=== PATIENT | female | born 1995 | race Caucasian/White ===

== ENCOUNTER 2020-02-05 13:03 | Outpatient (CLI) | payer BC, SELFPAY ==
--- NOTE | 2020-02-05 13:07 | NS.NUTBLAN_ITS ---
Francy and her mother attended Medical Nutrition Therapy for anorexia. Francy is 24 years old. Ht: 5'4 and reports that she gets blind weights at her appointments. Wt: 104 lbs BMI: 17.85. Francy was in inpatient eating disorder treatment last year for two weeks. Meds include: naltrexone, strattera, abilify, calcium with D, MVI. PMH: fatigue, osteoporosis, constipation, bipolar dx, PTSD, Fibromyalgia. She started to restrict about 9 years ago, her lowest weight at current height was 78 lb. Francy reports that she is a vegan as of 1 year ago and she and her brother cook every night. Mother makes her own dinner. Francy reports no menses for several years. She walks 1 hour per day. Diet record reveals 2 meals daily- including large amounts of fruit, vegetables, very low in fat and protein- average intake: 800-900 kcal, 30 grams protein, 20 grams fat. Estimated Nutrient Needs: 2087 kcal (BEE:1221, 1.3 activity factor +500 kcal for weight gain), 60-70 grams protein (1.3-1.4 gpro/kg), 2000 ml fluid. Esdras is commited to recover from her eating disorder. She has maintained her current weight of > 6 months however has not had her menses return. In view of low BMI (<19), suspect will need to gain 10-15 lbs to regulate her female hormones. She is willing to gain weight but prefers blind weights. Todays session included education on her exchange meal plan. She needs to have 6 exchanges of carbohydrates, protein and fats, 2 exchanges of dairy. Exchange list provided. Esdras is agreeable to eat 3 meals daily and include snacks inorder to meet necessary exchanges for weight gain. Current vitamin/mineral intake sufficient for repletion. Goal weight set at 114-120 lbs. Plan: Francy will follow meal plan as explained, if unable to, will journal about her feelings and bring to next session Francy will include more protein rich foods, healthy fats and limit her exercise to no more than 30 minutes daily. Follow up visit scheduled for 02/12/20. Face to Face Time: 45 minutes
== END 2020-02-05 13:23 ==
PROVIDERS: PCP Registered Nurse; Visit Provider Registered Nurse
DX: F50.9 Eating disorder, unspecified (principal); Z71.3 Dietary counseling and surveillance
CPT/HCPCS: 97802

== ENCOUNTER 2020-03-03 01:14 | Outpatient (CLI) | payer BC, SELFPAY | END 2020-03-03 01:34 | PROVIDERS: PCP Registered Nurse; Visit Provider Registered Nurse | DX: R63.0 Anorexia (principal); Z71.3 Dietary counseling and surveillance | CPT/HCPCS: 97803 ==

== ENCOUNTER 2020-03-25 13:13 | Outpatient (CLI) | payer BC, SELFPAY ==
--- NOTE | 2020-03-25 13:42 | NS.NUTBLAN_ITS ---
Francy returns for follow up visit for Medical Nutrition Therapy for Anorexia. Blind weight today is 104 lbs, up 2 lbs from previous visit. Francy brought her food journal and she continues to struggle with meeting her caloric need. She is able to meet her 2000 calorie, 60 g protein goal on <50% of days. Most days she eats 3 times daily and reports feeling excessively full that is a trigger for negative thoughts that lead to restricting at next meal. She is able to verbalize ways she can distract herself during meal time to meet calorie needs but some days does not have resilience to follow through. Overall, she has gained back 2 of her lost lbs and is closer to her goal weight of 106-110lbs. She also reports menses returning. She continues to be adamant about recovery and continues to take positive steps for recovery. Plan: 1. continue to follow 2000 kcal meal plan 2. start to log down protein intake at all meals- goal is 60 g protein 3. write down triggering feelings along with food journal. \ Follow visit: April 08, 2020 Face to Face 30 minutes
== END 2020-03-25 13:33 ==
PROVIDERS: PCP Registered Nurse; Visit Provider Registered Nurse
DX: R63.0 Anorexia (principal); Z71.3 Dietary counseling and surveillance
CPT/HCPCS: 97803

== ENCOUNTER 2020-04-08 03:44 | Outpatient (CLI) | payer BC, SELFPAY ==
--- NOTE | 2020-04-08 13:00 | NS.NUTBLAN_ITS ---
Francy returns for Medical Nutrition Therapy for anorexia. Blind weight today 106 lbs. Has maintained adequate weight for > 4 weeks, with monthly menses has returned. Diet recall indicates 3 meals daily with average intake of 1400 kcal, 60 g protein. In last two weeks, has increased protein intake to recommended amounts. Continues to take citrucel and magnesium and able to have Bm most days. Takes daily MVI. Session today focused on redirecting triggering thoughts, labeling thoughts as triggers and documenting frequency. Discussed importance of Name it to Tame it to help redirect impulses and to be able to avoid restricting. Overall, Francy is doing well and able to work through her eating disorder thoughts and continue to meet nutrient needs for weight maintenace at lowest ideal body weight for body function. Plan: Continue current meal plan Will track restricting/triggerin thoghts will follow up 04/22/20 at 1300 30 min spent face to face
== END 2020-04-08 04:04 ==
PROVIDERS: PCP Registered Nurse; Visit Provider Registered Nurse
DX: R63.0 Anorexia (principal); Z71.3 Dietary counseling and surveillance
CPT/HCPCS: 97803

== ENCOUNTER 2020-04-22 03:42 | Outpatient (CLI) | payer BC, SELFPAY ==
--- NOTE | 2020-04-22 13:00 | NS.NUTBLAN_ITS ---
Francy returns for follow up meeting for Medical Nutrition Therapy for anorexia. Blind weight 102 lbs. 85% IBW.. Francy is ranging from 102-106 lbs in last couple of months and reports has had her menses regularly for last 8 weeks. Food record brought in indicates calorie intake averaging 3489-0225 kcal, protein intake 50-80 g protein, she is meeting 80% caloric and protein intake. She reports feeling better, less bloating and continues to take citrucel and 500 mg magnesium daily. Today's session revolved around family's role in helping her stay on track with meals. She reports her brother eats with her and family listens to her when she needs to vent. Reviewed her continued effort in recovery is allowing her body to maintain weight. Despite not meeting nutrient and weight goals, Francy is making progress toward recovery. Next appt. 05/06/20 at 1400.
== END 2020-04-22 04:02 ==
PROVIDERS: PCP Registered Nurse; Visit Provider Registered Nurse
DX: R63.0 Anorexia (principal); Z71.3 Dietary counseling and surveillance
CPT/HCPCS: 97803

== ENCOUNTER 2020-05-06 05:29 | Outpatient (CLI) | payer BC, SELFPAY ==
--- NOTE | 2020-05-06 15:32 | NS.NUTBLAN_ITS ---
Francy returns for follow up visit for Medical Nutrition Therapy for Anorexia. Blind weight today 106 lbs, 88% [place] Body weight. Continues to maintain her weight between 103-106 lbs for > 90 days. She continues to have her menses every 28-30 days. Reviewed food journal, she continues to follow meal plan and is following meal plan and meeting > 85% of caloric and protein intake recommendations. She has had two major stressor in last 2 weeks- mother is paining living and dining room and her brother no longer eats meals as previously. Brother restricts when he feels stressed. Francy has been able to continue to follow meal plan, maintain her weight despite triggers. Reviewed her ability to have resilience during stressful times. Next visit in 3 weeks 06/03/20 at 2 pm.
== END 2020-05-06 05:49 ==
PROVIDERS: PCP Registered Nurse; Visit Provider Registered Nurse
DX: R63.0 Anorexia (principal); Z71.3 Dietary counseling and surveillance
CPT/HCPCS: 97803

== ENCOUNTER 2020-06-03 02:12 | Outpatient (CLI) | payer BC, SELFPAY ==
--- NOTE | 2020-06-03 13:51 | NS.NUTBLAN_ITS ---
Francy returns for Medical Nutrition Therapy for anorexia after 4 weeks. Blind weight today 98 lbs, down 4 lbs in 4 weeks. Meal record/journal indicates she is averaging 0907-4894 kcal daily with 60-70 g protein daily. She continues to follow a vegan diet. She reports more meal skipping in last couple weeks and that she is triggered by her brother restricting his food intake. Her brother used to be her support and would eat with her. He no longer eats with Francy but Francy continues to try to maintain meal structure. Intervention: Francy needs to increase her caloric intake to by 500 kcal and needs to meet 2000 kcal per day to keep her weight in her goal. She is agreeable to include quest bars (200 kcal) and 2 cups soy milk daily (200 stevenson), along with francheska patrick on her sandwich (100 calories). I also challenged her to try fruit flavored yogurt this week as she typically only has plain yogurt. We discussed orthorexia and how it can impact her meal choices and the need to continue to challenge herself with fear foods such as liquid calories and added sugar products. . We discussed risks of keeping her weight below target weight of 106 lbs and how often metabolism increases as a response to recovery, requiring more vigilance in maintaining adequate intake and frequent weight checks. Plan: 2000 kcal, 60-70 g protein, 40-50 g fat Vegan diet- journal daily and bring to next meeting, journal about feelings of being fat and occurrences per day fu visit in two weeks 06/17/20 1300
== END 2020-06-03 02:32 ==
PROVIDERS: PCP Registered Nurse; Visit Provider Dietitian, Registered
DX: R63.0 Anorexia (principal); Z71.3 Dietary counseling and surveillance
CPT/HCPCS: 97803

== ENCOUNTER 2020-06-17 02:28 | Outpatient (CLI) | payer BC, SELFPAY ==
--- NOTE | 2020-06-17 13:00 | NS.NUTBLAN_ITS ---
Francy returns after two weeks for Medical Nutrition Therapy for anorexia. Wt: 100 lbs, up 2 lbs from last visit. Recent Blood work mostly wnl including Hgb, vit D levels. Diet recall indicates increase in total calories 0206-6941 kcal (eating 200-300 more calories per day). Reviewed meal plans and made adjustments. Francy complains about not eating full meals due to hot weather, however, still able to meet caloric goals with snacks, beverages. Has started to incorporate flavored yogurt and caloric beverages (soy milk). Continues to report BM every 3 days, and now with increase in bloating that is triggering to her and makes her want to restrict. Recommended that she decrease in soluable fiber (nuts, seeds, dried fruit) and continue to take citrucel - 1 scoop daily, along with magnesium. Francy states her menses is monthly. Overall, Francy has gotten herself back on track and taking positive steps towards recovery. She continues to struggle but is able to follow through with meeting caloric goals, protein goals and willing to try fear foods such as flavored yogurt and caloric beverages. Goal is for 2 lbs weight gain in next 3 weeks. Plan: 3528-2137 kcal meal plan, 60-70 g fat, 40-50 g fat Vegan Diet. Continue to journal meals and triggers. Next visit scheduled for 07/07/20 @ 1pm.
== END 2020-06-17 02:48 ==
PROVIDERS: PCP Registered Nurse; Visit Provider Dietitian, Registered
DX: R63.0 Anorexia (principal); Z71.3 Dietary counseling and surveillance
CPT/HCPCS: 97803

== ENCOUNTER 2020-07-07 04:41 | Outpatient (CLI) | payer BC, SELFPAY ==
--- NOTE | 2020-07-08 15:00 | NS.NUTBLAN_ITS ---
Francy returns for Medical Nutrition Therapy for anorexia. Wt: 102 lbs, up 2 lbs since last visit. Farncy reports in last couple of weeks more joint pain, constipation and bloating however able to maintain her nutrient/fluid intake to maintain her weight. She continues to keep a food log and records her negative body image thoughts daily. She continues to struggle with > 10 episodes of negative body talk, however, able to keep eating meals planned. Meal plan continues to be very limited, however, has started to include some fear foods such as donut holes, fruited yogurt (versus plain). Francy reports staying in the house most days, continues to have fear of outdoors. She reports having BM every 2-3 days but feels bloated on days she does not have a BM. Overall, Francy is doing well with her eating disorder, maintaining her weight, has regular menses and able to work through her restricting impulses. We discussed including meditation to her daily routine- using youtube channel and finding meditations that are focused on compulsive negative thoughts. Francy is open to try meditation. We also discussed adding more citrucel (2 TBSP) per day, continue with magnesium supplementation to help with bloating and constipation. Follow up appt. 08/05/20 @ 1 pm.
== END 2020-07-07 05:01 ==
PROVIDERS: PCP Registered Nurse; Visit Provider Dietitian, Registered
DX: R63.0 Anorexia (principal); F50.89 Other specified eating disorder; Z71.3 Dietary counseling and surveillance
CPT/HCPCS: 97803

== ENCOUNTER 2020-08-06 00:01 | Outpatient (CLI) | payer BC, SELFPAY ==
--- NOTE | 2020-08-06 13:00 | NS.NUTBLAN_ITS ---
Francy returns for Medical Nutrition Therapy for anorexia. Wt: 102 lbs. Weight has been stable x 30 days and she continues to report having her menses monthly, reports increase in pain from fibromyalgia. Francy reports home stressors- brother is not eating very much, blaming her for his inability to eat. Her brother is 25 yo and is taller and weighs less than Francy. Francy is triggered by his comments, lack of eating and has noticed an increase in her own restricting. Mother is only one working in family and has only car. Francy and brother live at home. Father is not involved. We discussed that part of her nerve pain may be due to poorly myelinated sheaths around her nerve fibers. We came up with a meal plan that adds more fats and calories in order for her body to be able to deposit myelinated sheaths and ease her pain in her shoulders and hips. Francy remains committed to continued recovery but lacks vision for her future. I tried to elicit goals from her, but she was unable to state a goal. She did say she wants to get her GED and get a job but will need to save up money to get a car. Bloating and constipation treated with citrucel, magnesium and mirilax Plan: Francy will add olive oil, cheese, soy milk to daily meals, [place] will have a hot meal once a day and will start walking again once her pain becomes less.
== END 2020-08-06 00:21 ==
PROVIDERS: PCP Registered Nurse; Visit Provider Dietitian, Registered
DX: R63.0 Anorexia (principal); F50.89 Other specified eating disorder; Z71.3 Dietary counseling and surveillance
CPT/HCPCS: 97803

== ENCOUNTER 2020-09-09 02:58 | Outpatient (CLI) | payer BC, SELFPAY ==
--- NOTE | 2020-09-09 13:00 | NS.NUTBLAN_ITS ---
Francy returns for Medical Nutrition Therapy for anorexia. Wt: 106 lbs. Weight has fluctuated from 102-106 lbs for last 4 months. PO intake increased per food journal to 0757-3268 kcal daily, has incorporated several fear foods into meal rotation including eating more hot meals, including caloric beverages and eating more carbohydrates. Family environment continues to be stressful- mother on Keto Diet and makes negative remarks on foods Francy likes to eat. Francy able to continue to eat despite daily triggering comments. Reviewed importance of staying on meal plan and encouraged her to reach out to therapist as needed. Next appt. scheduled for 10/14/20. Once able to maintain weight 104-106 lbs for > 3 months, will reduce visits to every 6 weeks. Continues to need close monitoring of weight/diet until achieved.
== END 2020-09-09 03:18 ==
PROVIDERS: PCP Registered Nurse; Visit Provider Dietitian, Registered
DX: R63.0 Anorexia (principal); Z71.3 Dietary counseling and surveillance
CPT/HCPCS: 97803

== ENCOUNTER 2020-10-14 01:44 | Outpatient (CLI) | payer BC, SELFPAY ==
--- NOTE | 2020-10-14 13:00 | NS.NUTBLAN_ITS ---
Francy returns for Medical Nutrition Therapy for Anorexia. Wt: 106 lbs- weight has been stable for 5 months. She reports more triggers to restrict in last month. Triggers include wearing larger sizes, brother restricting, mother on diet and increase in depression with winter coming. She continues to live at home with her mother and older brother. She has not completed high school yet and therefore does not have a job. Family has only 1 car and mother uses it to go to work. Diet record indicates typical intake 1026-9008 calories but some days as low as 500 calories. She reports walking daily (in house) for 40 minutes and has had less pain in last couple of weeks. Therapy every couple of weeks due to increased case load for therapist. I encouraged her to start meditating 10 minutes daily ( using youtube channels). We reviewed relapse prevention plan. Francy to start emailing leader writer weekly and will call when she wants to restrict. Follow up scheduled for 11/04/20 at 1 pm.
== END 2020-10-14 02:04 ==
PROVIDERS: PCP Registered Nurse; Visit Provider Dietitian, Registered
DX: R63.0 Anorexia (principal); Z71.3 Dietary counseling and surveillance
CPT/HCPCS: 97803

== ENCOUNTER 2020-11-04 05:42 | Outpatient (CLI) | payer BC, SELFPAY ==
--- NOTE | 2020-11-04 13:00 | NS.NUTBLAN_ITS ---
Francy returns for Medical Nutrition Therapy for anorexia. Wt: 110 lbs today, up 4 lbs in last 3 weeks. Francy reports being able to overcome behaviors in last 2 weeks by using various distractions including reading, playing board games and helping her brother eat. She reports wanting to cut again but states I don't want to do that again. She has a counselor via zoom every 2 weeks. Depression continues to be debilitating for Francy but she has been able to maintain her weight and continues to get her menses monthly indicating a body in balance. She continues to have negative self thoughts but is proud of herself to be able to continue to work on her recovery and eat what she needs to be in balance. Francy is taking positive steps towards recovery. She continues to struggle and benefits from monthly weigh in and food record review. She may benefit from additional services and has agreed today for a community connection referral for mental health and help completing her GED. Plan: follow up visit 12/09/20 at 1 pm, Francy to reach out by phone or email if needs support sooner.
== END 2020-11-04 06:02 ==
PROVIDERS: PCP Registered Nurse; Visit Provider Dietitian, Registered
DX: R63.0 Anorexia (principal); Z71.3 Dietary counseling and surveillance
CPT/HCPCS: 97803

== ENCOUNTER 2020-12-09 04:00 | Outpatient (CLI) | payer BC, SELFPAY ==
--- NOTE | 2020-12-09 13:00 | NS.NUTBLAN_ITS ---
Francy returns for Medical Nutrition Therapy for anorexia. Wt: 118 lbs. Francy has gained 8 lbs in last 4 weeks. She reports that she is about to have her menses, some of weight gain fluid shifts. Diet recall indicates more consistent diet intake of 2388-7391 kcal. She reports working through her urges to restrict as she is trying to help her brother that is also restricting. Session today focused on her need to focus on her own needs and to continue to encourage her brother but not to try to heal her brother. Francy is seeing a therapist and is getting help with this. We discussed her ability to stay on track, work through triggers and to keep her weight in an acceptable range. Encouraged her to continue and to expect urges to get stronger as weight is regained. We talked about different ways to distract during meals inorder to complete. Plan: Francy continues to want a monthly blind weigh in. At this time, this is reasonable as she is less than 1 year into her recovery. Plan: follow up 01/13/21 at 1 pm.
== END 2020-12-09 04:20 ==
PROVIDERS: PCP Registered Nurse; Visit Provider Dietitian, Registered
DX: R63.0 Anorexia (principal); Z71.3 Dietary counseling and surveillance
CPT/HCPCS: 97803

== ENCOUNTER 2021-01-13 03:05 | Outpatient (CLI) | payer BC, SELFPAY ==
--- NOTE | 2021-01-13 13:00 | NS.NUTBLAN_ITS ---
Francy returns for Medical Nutrition Therapy for anorexia. Wt: 120 lbs. Francy continues to meet her nutrient needs and weight in ideal range. Reviewed with her triggers and ways to overcome feelings of restricting. She reports that she eats most of her meals with her brother, who also will restrict. Francy reports meeting with therapist weeklly and feels really good about results. Food record reveals that Francy is monitoring nutrient intake daily and on average is meeting 1500 kcal daily which allows her body to remain in ideal range. At this time, I recommend meeting Francy every other month for weight check. Plan: follow up meeting 03/17/21 at 1pm.
== END 2021-01-13 03:06 | disposition home or self-care (01) ==
LOC: DS 03:05
PROVIDERS: PCP Registered Nurse; Visit Provider Dietitian, Registered
DX: R63.0 Anorexia (principal); Z71.3 Dietary counseling and surveillance
CPT/HCPCS: 97803

== ENCOUNTER 2021-03-17 04:11 | Outpatient (CLI) | payer BC, SELFPAY ==
--- NOTE | 2021-03-17 13:00 | NS.NUTBLAN_ITS ---
Francy returns for Medical Nutrition Therapy after 60 days. Blind Wt: 132 lbs, up 12 lbs in last 2 months. Reports starting [place] about 2 months ago, which has been very helpful in reducing self harm urges. Francy reports increase intake of not healthy foodssuch as pizza, take out foods. She reports eating 5255-3490 kcal daily, very little exercise due to increased pain from fibromyalgia. Extra weight gain has been triggering for Francy however she does not weigh herself. She reports that she wants to return 120 lbs- that felt acceptable to her. Current weight may become trigger for restricting in future. Reviewed meal plans and recommended reducing caloric intake to 7868-7556 kcal, with 55-65 g protein, 50-60 g fat. Encouraged activity as tolerated. [place] is linked to 10-26 lbs weight gain in women and is related to thyroid disruption. Weight gain thought to be dose dependent. Plan: follow up visit 04/14/21 at 1 pm Francy to track caloric intake with goal of 1725-9859 kcal, 55-65 g protein, 50- 60 g fat and to increase activity as tolerated. Consider reducing dose of lithium in order to reduce weight gain as more weight gain will most likely trigger anorexic behaviors.
== END 2021-03-17 04:12 | disposition home or self-care (01) ==
LOC: DS 04:11
PROVIDERS: PCP Registered Nurse; Visit Provider Dietitian, Registered
DX: R63.0 Anorexia (principal); F50.89 Other specified eating disorder; Z71.3 Dietary counseling and surveillance
CPT/HCPCS: 97803

== ENCOUNTER 2021-04-28 04:00 | Outpatient (CLI) | payer BC, SELFPAY ==
--- NOTE | 2021-04-28 14:00 | NS.NUTBLAN_ITS ---
Francy returns for Medical Nutrition Therapy for anorexia. No weight taken today, however, looks to be weight stable and BMI wnl. Reports has stopped counting calories and learning to get used to her body at a higher weight. Continues to be focused on helping her brother with his eating disorder. Reviewed importance to not take responsibility in treating her brother. Has counselor on board and working on enmeshment with sibling. Diet recall indicates mostly well balanced meals and meeting 100% nutrient and fluid needs. Continues to have urges to restrict, but able to distract self and stay on track. Praised and encouraged Francy to continue on her journey of recovery and to focus on new goals that she wants to accomplish. 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 No follow up appt. planned. Will be available prn.
== END 2021-04-28 04:01 | disposition home or self-care (01) ==
LOC: DS 04:01
PROVIDERS: PCP Registered Nurse; Visit Provider Dietitian, Registered
DX: R63.0 Anorexia (principal); F50.89 Other specified eating disorder; Z71.3 Dietary counseling and surveillance
CPT/HCPCS: 97803